=== PATIENT | female | born 1995 | race Two or more races ===

== ENCOUNTER 2024-09-01 00:29 | Emergency (ER) | payer MEDICAID, SELFPAY ==
[2024-09-01 00:31] VITALS: BMI 25.0
[2024-09-01 00:45] VITALS: BP 102/70; PULSE 92; RESP 18; TEMP 36.9; O2SAT 99
[2024-09-01] MEDS: METOCLOPRAMIDE INJ 5 MG/ML VIAL 2 ML 10 MG IM (01:14)
[2024-09-01] MEDS: DiphenhydrAMINE INJ 50 MG/ML VIAL 25 MG IM (01:14)
--- NOTE | 2024-09-01 02:58 | PD.EDRME ---
Rapid Medical Screening Exam RME Arrival date/time: 09/01/24 00:29 29F with no significant PMH presents to ED with N/V after 1st Ozempic dose. Chief Complaint: Nausea/Vomiting/Diarrhea Time Seen by Provider: 09/01/24 00:54 Vital signs: Vital Signs Temperature 98.5 F 09/01/24 00:45 Pulse Rate 92 09/01/24 00:45 Respiratory Rate 18 09/01/24 00:45 Blood Pressure 102/70 09/01/24 00:45 Pulse Oximetry (%) 99 09/01/24 00:45 Oxygen Delivery Method Room Air 09/01/24 00:45
== END 2024-09-01 02:55 | disposition left against medical advice (07) ==
PROVIDERS: Emergency Provider Emergency Medicine
DX: R11.2 Nausea with vomiting, unspecified (principal); T38.3X5A Adverse effect of insulin and oral hypoglycemic [antidiabetic] drugs, initial encounter
CPT/HCPCS: 99281; J1200; J2765

== ENCOUNTER 2024-09-02 07:31 | Emergency (ER) | payer MEDICAID, SELFPAY ==
[2024-09-02 07:56] VITALS: BP 124/79; PULSE 90; RESP 19; TEMP 36.8; O2SAT 98; BMI 25.9
--- NOTE | 2024-09-02 08:03 | PD.EDRME ---
Rapid Medical Screening Exam RME Arrival date/time: 09/02/24 07:31 This is a 29-year-old female who presents to the emergency department with complaints of nausea and vomiting, + flank pain for the last 3 days. Reports history of pyelo-, kidney stones. However she does state her nausea might be to her first dose of Ozempic. I have greeted and performed a focused initial assessment of this patient. Initial appropriate labs ordered at this time. A comprehensive ED assessment and evaluation of the patient and analysis of all test and completion of medical decision making process will be conducted by additional ED provider. Chief Complaint: Urogenital-Female Time Seen by Provider: 09/02/24 07:46 Vital signs: Vital Signs Temperature 98.2 F 09/02/24 07:56 Pulse Rate 90 09/02/24 07:56 Respiratory Rate 19 09/02/24 07:56 Blood Pressure 124/79 09/02/24 07:56 Pulse Oximetry (%) 98 09/02/24 07:56 Oxygen Delivery Method Room Air 09/02/24 07:56
[2024-09-02] MEDS: ONDANSETRON ODT 4 MG TABRAP 8 MG PO (08:09)
--- NOTE | 2024-09-02 08:39 | XR_ITS ---
Examination: CT abdomen and pelvis without contrast. Coronal 3-D reconstructions. Sagittal 2-D reconstructions. Date and time of exam:September 02, 2024 1059 hrs. Indications: Vomiting bilateral flank pain beginning 3 days ago CTDI: vol (mGy): 8.35 DLP: (mGycm): 438 Technique: Axial images of the abdomen have been obtained, 3 mm slice thickness Intravenous contrast material has not been administered. Low dose protocols were performed. One or more of the following dose reduction techniques were used; automated exposure control, adjustment of the mA and/or KV according to patient size, use of iterative reconstruction technique. Findings: No focal liver or splenic lesions No gallstones No pancreatic mass Multiple bilateral 1 to 3 mm renal calculi, no hydronephrosis or ureteral calculi Aorta normal size Normal appendix No bowel obstruction Intrauterine device satisfactory position No bladder mass or bladder calculi Impression: Multiple bilateral 1 to 3 mm renal calculi, no hydronephrosis or ureteral calculi
[2024-09-02 08:52] LABS: Collection Type, Urine Clean Catch
[2024-09-02 09:02] LABS: Basophils % (Auto) 0 % (0-2.5); Eosinophils % (Auto) 0 % (0-10); Hematocrit 39.5 % (36.0-46.0); Hemoglobin 14.2 g/dL (12.0-16.0); Immature Granulocytes % (Auto) 0 % (0-0); Immature Granulocytes Auto 0.04 Thou/mm3 (0.00-0.00); Lymphocytes % (Auto) 8 % (10-50); Mean Corpuscular HGB Conc 35.9 g/dl (31.0-37.0); Mean Corpuscular Hemoglobin 34.3 pg (25.0-35.0); Mean Corpuscular Volume 95 fL (80-100); Monocytes # (Auto) 0.9 Thou/mm3 (0.0-0.8); Monocytes % (Auto) 7 % (0-12); Neutrophils # (Auto) 11.2 Thou/mm3 (1.8-7.7); Neutrophils % (Auto) 85 % (37-80); Nucleated Red Blood Cell % 0 /100 WBC (0); Platelet Count 320 Thou/mm3 (140-440); RDW Standard Deviation 38.3 fL (36.4-46.3); Red Blood Count 4.14 Miln/mm3 (4.00-5.20); White Blood Count 13.1 Thou/mm3 (3.6-11.0)
[2024-09-02 09:17] LABS: HCG Qualitative,Urine Negative
[2024-09-02 09:23] LABS: Albumin, Serum 5.3 gm/dL (3.5-5.0); Albumin/Globulin Ratio 1.7 (1.2-2.2); Alkaline Phosphatase 76 U/L (46-116); Anion Gap 10 (7-16); Aspartate Amino Transferase 15 U/L (0-34); BUN/Creatinine Ratio 21 Ratio (12-20); Bilirubin,Total 1.8 mg/dL (0.3-1.2); Blood Urea Nitrogen 17 mg/dL (9-23); Calcium 11.7 mg/dL (8.3-10.6); Calcium (Corrected) 11.7 mg/dL (8.5-10.1); Carbon Dioxide 23.9 mMol/L (20.0-31.0); Chloride 107 mMol/L (98-107); Creatinine (Component) 0.8 mg/dL (0.6-1.3); Estimated Creatinine Clearance 101.5 mL/min (>60); Globulin 3.1 gm/dL (2.3-3.5); Glucose 116 mg/dL (74-106); Lipase 33 U/L (12-53); Osmolality,Calculated 283 (275-295); Potassium 3.7 mMol/L (3.4-5.1); Sodium 141 mMol/L (136-145); Total Protein 8.4 gm/dL (5.7-8.2); eGFR > 60 See Note
[2024-09-02 09:28] LABS: Alanine Aminotransferase 11 U/L (10-49)
[2024-09-02 09:32] LABS: Bacteria,Urine 4+; Bilirubin,Urine Negative (Negative); Blood,Urine 1+ (Negative); Clarity,Urine Turbid (Clear/Hazy); Color,Urine Yellow (Lt Yel-Yel); Glucose, Urine Negative (Negative); Ketones,Urine 4+ (Negative); Leukocyte Esterase,Urine Positive (Negative); Nitrite,Urine Negative (Negative); Protein,Urine 1+ (Neg - Trace); RBC,Urine 1 /hpf (0-3); Specific Gravity,Urine 1.035 (1.001-1.035); Squamous Epithelial Cell,Urine 5 /hpf (0-5); Urobilinogen,Urine Negative mg/dL (0.0-1.0); WBC,Urine 7 /hpf (0-5)
[2024-09-02 12:20] VITALS: BP 118/73; PULSE 102; RESP 18; O2SAT 100
--- NOTE | 2024-09-02 12:22 | PD.EDADULT ---
ED General RME/HPI General Chief complaint: Urogenital-Female Stated complaint: left kidney pain, n/v, feels dehydrated Time Seen by Provider: 09/02/24 07:46 Arrival date/time: 09/02/24 07:31 CC: Left CVA flank pain for the last 3 days with nausea and vomiting. Onset 3 days ago nausea is persistent last vomiting was earlier this morning approximately 5+ hours ago. Patient is awake alert oriented denies any chest pain shortness of breath difficulty breathing painful urination or bloody urination. RME / HPI RME / HPI narrative: 09/02/24 07:31 This is a 29-year-old female who presents to the emergency department with complaints of nausea and vomiting, + flank pain for the last 3 days. Reports history of pyelo-, kidney stones. However she does state her nausea might be to her first dose of Ozempic. I have greeted and performed a focused initial assessment of this patient. Initial appropriate labs ordered at this time. A comprehensive ED assessment and evaluation of the patient and analysis of all test and completion of medical decision making process will be conducted by additional ED provider. Related Data Previous Rx's ?Medication ?Instructions ?Recorded ibuprofen 600 mg tablet 600 mg PO Q8HR #30 tabs 01/23/21 levofloxacin 500 mg tablet 500 mg PO QDAY #10 tabs 01/23/21 tramadol 50 mg tablet 50 mg PO Q6HR PRN severe pain #7 01/23/21 tabs cefuroxime axetil 500 mg tablet 500 mg PO BID #14 tabs 06/15/23 ibuprofen 800 mg tablet 800 mg PO TID PRN pain #30 tabs 06/15/23 ciprofloxacin HCl 500 mg tablet 500 mg PO BID #14 tabs 09/02/24 (Cipro) ondansetron 4 mg disintegrating 4 mg PO Q8H #10 tabs 09/02/24 tablet Allergies Allergy/AdvReac Type Severity Reaction Status Date / Time No Known Allergies Allergy Verified 09/01/24 00:33 Review of Systems Review of Systems Narrative Review of Systems: GEN: No fever, no chills, no weight loss EYES: No discharge, no visual changes, no pain HEENT: No ear pain, no congestion, no sore throat PULM: No shortness of breath, no cough, no congestion CV: No chest pain, no dyspnea on exertion, no palpitations GI: No nausea, no vomiting, no diarrhea, no pain, no constipation : No frequency, no urgency, no dysuria MUSC/SKEL: No joint pain, + back pain SKIN: No rash PSYCH: No hallucinations, no depression HEME/LYMPH: No easy bleeding or bruising tendencies NEURO: No weakness, no headache Past Medical History Past Medical History CARDIAC: Negative Congestive Heart Failure RESPIRATORY: Negative Chronic Obstructive Pulmonary Disease (COPD) GENITOURINARY: Positive Kidney Stones; Negative Renal Disease ENDOCRINE: Negative Diabetes Mellitus Type 1 or Diabetes Mellitus Type 2 OTHER HISTORY: Negative Blood Transfusions Social History SMOKING STATUS: Never smoker SUBSTANCE USE: does not use ED Exam Narrative Physical exam: [General: Not in any acute distress Head normocephalic HEENT: Within acceptable limits Neck is supple nontender Chest equal chest rise nontender to palpation Respiratory: Clear to auscultation no wheezes crackles or rubs CV: Rate rhythm is regular no murmurs rubs or clicks Abdomen is soft nontender no masses positive bowel sounds all 4 quadrants Back: Left CVA tenderness no right CVA tenderness, no spinous process tenderness from cervical spine thoracic and lumbar spine Skin: Intact no petechiae rash induration ulceration or crepitus Extremities: Moving all extremity against resistance cap refill less than 2 seconds neurosensory intact Neuro: Awake alert oriented x3 Glascow coma 15 no focal deficits] Course Quality Measures none Orders Category Date Time Status CT abdomen pelvis wo con Stat Exams 09/02/24 08:39 Completed CBC Stat Lab 09/02/24 08:38 Completed Comprehensive Metabolic Panel Stat Lab 09/02/24 08:38 Completed HCG Qualitative,Urine Stat Lab 09/02/24 08:15 Completed Lipase Stat Lab 09/02/24 08:38 Completed Urinalysis Stat Lab 09/02/24 08:15 Completed Ondansetron Odt [Zofran Odt] Med 09/02/24 08:02 Discontinued 8 mg PO X1 ONE Vital Signs Vital signs: Vital Signs Temperature 98.2 F 09/02/24 07:56 Pulse Rate 90 09/02/24 07:56 Respiratory Rate 19 09/02/24 07:56 Blood Pressure 124/79 09/02/24 07:56 Pulse Oximetry (%) 98 09/02/24 07:56 Oxygen Delivery Method Room Air 09/02/24 07:56 MDM Patient data External records reviewed:: [facility] previous records Clinical information provided by:: patient Social determinants that could affect healthcare access:: none Patient has the following chronic illnesses:: None How is presenting disease/condition affected by chronic disease/condition?: uneffected by Evaluation data The following diagnostics were reviewed and interpreted by me:: lab results and radiology exam(s) Lab and/or radiology exams considered but not ordered:: CBC shows no acute leukocytosis anemia thrombocytopenia CMP shows no acute electrolyte imbalances renal impairment transaminitis or T. bili elevation CT shows the patient has renal pelvis stones with no hydroureter ureter hydronephrosis. Urine shows 4+ bacteria leukocyte Estrace and WBCs Interpretation Summary: Suspect urinary tract infection review of the culture and sensitivity of urine from 2020 shows that it is E. coli sensitive to pretty much everything. Medications Medications considered but not ordered:: None Medication administrations:: Medication Administration History Discontinued Medications Ondansetron HCl (Ondansetron Odt 4 Mg Tabrap) 8 mg PO X1 ONE; Protocol Stop: 09/02/24 08:03 Last Admin: 09/02/24 08:09 Dose: 8 mg Documented By: LENA None Consultations Consultation(s) initiated? (list below): No Diagnosis Differential Diagnosis ED Complaint MDM: UTI pyelonephritis urolithiasis Most likely diagnosis given after review of the tests above:: UTI nausea Admission Indicated Admission indicated?: not indicated Explain why admission is indicated or not indicated:: Stable for outpatient follow-up Admission Request Was there a request for admission?: No Disposition Plan Disposition Plan: Discharge Discharge Attestation Discharge Attestation: The patient and all family members were given an opportunity to ask questions and understood the discharge instructions. Discharge instructions specifically effects, indications for sooner follow up or return to the emergency department, and the expected course of current diagnosis. Patient condition: Stable Medical Decision Making Differential Diagnosis Differential Diagnosis: UTI pyelonephritis urolithiasis Lab Data 09/02/24 08:38 09/02/24 08:38 Labs: Lab Results 09/02/24 09/02/24 Range/Units 08:15 08:38 WBC 13.1 H (3.6-11.0) Thou/mm3 RBC 4.14 (4.00-5.20) Miln/mm3 Hgb 14.2 (12.0-16.0) g/dL Hct 39.5 (36.0-46.0) % MCV 95 (80-100) fL MCH 34.3 (25.0-35.0) pg MCHC 35.9 (31.0-37.0) g/dl RDW Std Deviation 38.3 (36.4-46.3) fL Plt Count 320 (140-440) Thou/mm3 Neut % (Auto) 85 H (37-80) % Lymph % (Auto) 8 L (10-50) % [place] % (Auto) 7 (0-12) % Eos % (Auto) 0 (0-10) % Baso % (Auto) 0 (0-2.5) % Neut # (Auto) 11.2 H (1.8-7.7) Thou/mm3 Lymph # (Auto) 1.0 (1.0-4.8) Thou/mm3 [place] # (Auto) 0.9 H (0.0-0.8) Thou/mm3 Eos # (Auto) 0.0 (0.0-0.5) Thou/mm3 Baso # (Auto) 0.0 (0.0-0.2) Thou/mm3 Immature Gran # (Auto) 0.04 H (0.00-0.00) Thou/mm3 Absolute Nucleated RBC 0.00 (0.00-0.00) Thou/mm3 Immature Gran % 0 (0-0) % Nucleated RBC % 0 (0) /100 WBC Sodium 141 (136-145) mMol/L Potassium 3.7 (3.4-5.1) mMol/L Chloride 107 (98-107) mMol/L Carbon Dioxide 23.9 (20.0-31.0) mMol/L Anion Gap 10 (7-16) BUN 17 (9-23) mg/dL Creatinine 0.8 (0.6-1.3) mg/dL Estim Creat Clear Calc 101.5 (>60) mL/min eGFR > 60 (60 - ) See Note BUN/Creatinine Ratio 21 H (12-20) Ratio Glucose 116 H (74-106) mg/dL Calculated Osmolality 283 (275-295) Calcium 11.7 H (8.3-10.6) mg/dL Corrected Calcium 11.7 H (8.5-10.1) mg/dL Total Bilirubin 1.8 H (0.3-1.2) mg/dL AST 15 (0-34) U/L ALT 11 (10-49) U/L Alkaline Phosphatase 76 (46-116) U/L Total Protein 8.4 H (5.7-8.2) gm/dL Albumin 5.3 H (3.5-5.0) gm/dL Globulin 3.1 (2.3-3.5) gm/dL Albumin/Globulin Ratio 1.7 (1.2-2.2) Lipase 33 (12-53) U/L Ur Collection Type Clean Catch Urine Color Yellow (Lt Yel-Yel) Urine Clarity Turbid A (Clear/Hazy) Urine pH 6.0 (5.0-7.0) Ur Specific [place] 1.035 (1.001-1.035) Urine Protein 1+ A (Neg - Trace) Urine Glucose (UA) Negative (Negative) Urine Ketones 4+ A (Negative) Urine Blood 1+ A (Negative) Urine Nitrite Negative (Negative) Urine Bilirubin Negative (Negative) Urine Urobilinogen (Auto) Negative (0.0-1.0) mg/dL Ur Leukocyte Esterase Positive (Negative) Urine RBC 1 (0-3) /hpf Urine WBC 7 H (0-5) /hpf Ur Squamous Epith Cells 5 (0-5) /hpf Urine Bacteria 4+ A (None) Urine HCG, Qual Negative Discharge Plan Plan Patient Disposition: HOME (Self Care) Patient condition on transfer: Stable Prescriptions/Referrals Prescriptions/Med Rec: New ciprofloxacin HCl [Cipro] 500 mg tablet 500 mg PO BID Qty: 14 0RF ondansetron 4 mg tablet,disintegrating 4 mg PO Q8H Qty: 10 0RF No Action tramadol 50 mg Tablet 50 mg PO Q6HR PRN (Reason: severe pain) Qty: 7 0RF ibuprofen 600 mg Tablet 600 mg PO Q8HR Qty: 30 0RF levofloxacin 500 mg tablet 500 mg PO QDAY Qty: 10 0RF cefuroxime axetil 500 mg tablet 500 mg PO BID Qty: 14 0RF ibuprofen 800 mg tablet 800 mg PO TID PRN (Reason: pain) Qty: 30 0RF Referrals: Faustino Martinez MD [Physician] - In 1 week No Primary/Family,Physician [Primary Care Provider] - In 1 week Problem List Clinical Impression: Urinary tract infection, Nausea Patient/Caregiver Discharge Instructions Other Activity Instructions:: Rest drink plenty of fluids follow-up with your primary care provider if there is worsening of symptoms spite of medication return the emergency room medially for further evaluation. Education Materials: Urinary Tract Infections in Women Print Language: Lithuanian Stand Alone Forms: Renetta Award Info., Work/School Release, Patient Portal Info Letter MD Attestation Attestation The patient was seen by the midlevel practitioner. I, the co-signing physician, was present during the entire ER visit. While I did not physically examine the patient, I was available for consultation as needed.
== END 2024-09-02 13:04 | disposition home or self-care (01) ==
PROVIDERS: Nurse Practitioner Primary Care; Emergency Provider Emergency Medicine
DX: N39.0 Urinary tract infection, site not specified (principal); N20.0 Calculus of kidney
CPT/HCPCS: 36415; 74176; 80053; 81001; 81025; 83690; 85025; 99284; Q0162

== ENCOUNTER 2025-05-15 05:40 | Day surgery (SDC) | payer MEDICAID, SELFPAY ==
[2025-05-14 07:44] VITALS: BMI 28.6
[2025-05-14 08:20] LABS: Basophils # (Auto) 0.0 Thou/mm3 (0.0-0.2); Basophils % (Auto) 0 % (0-2.5); Eosinophils # (Auto) 0.1 Thou/mm3 (0.0-0.5); Eosinophils % (Auto) 2 % (0-10); Hematocrit 38.7 % (36.0-46.0); Hemoglobin 13.3 g/dL (12.0-16.0); Immature Granulocytes Auto 0.01 Thou/mm3 (0.00-0.00); Lymphocytes # (Auto) 2.4 Thou/mm3 (1.0-4.8); Lymphocytes % (Auto) 36 % (10-50); Mean Corpuscular HGB Conc 34.4 g/dl (31.0-37.0); Mean Corpuscular Hemoglobin 34.5 pg (25.0-35.0); Mean Corpuscular Volume 100 fL (80-100); Monocytes # (Auto) 0.5 Thou/mm3 (0.0-0.8); Monocytes % (Auto) 8 % (0-12); Neutrophils # (Auto) 3.6 Thou/mm3 (1.8-7.7); Neutrophils % (Auto) 54 % (37-80); Nucleated Red Blood Cell # 0.00 Thou/mm3 (0.00-0.00); Nucleated Red Blood Cell % 0 /100 WBC (0); Platelet Count 267 Thou/mm3 (140-440); RDW Standard Deviation 41.1 fL (36.4-46.3); Red Blood Count 3.86 Miln/mm3 (4.00-5.20); White Blood Count 6.7 Thou/mm3 (3.6-11.0)
[2025-05-14 08:32] LABS: Beta HCG,Quantitative < 1 mIU/mL (<5.0)
[2025-05-14 09:14] LABS: Hepatitis A Antibody IgM Non Reactive (Non React); Hepatitis B Core Antibody IgM Non Reactive (Non React); Hepatitis B Surface Antigen Non Reactive (Non React); Hepatitis C Antibody Non Reactive (Non React)
--- NOTE | 2025-05-14 09:53 | PD.GYNHP ---
Documentation for date of: 05/14/25 [employer] SUPPORT CONTROL OFFICER - HPI History of Present Illness History of present illness: Ms. GREGORY is a 30 year old female admitted for cervical conization . Pt denied any vaginal concerns . Pt understands that its an excisional procedure for sever dysplastic cell of cervix removal. 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 OFFICER Constitutional Constitutional: no acute distress Routine HEENT Exam Head: Present normocephalic and atraumatic Eye: Present EOMI and PERRL ENT: Present mucous membranes moist Routine Neck Exam Neck: Present supple and trachea midline Routine Respiratory Exam Respiratory: Present chest non-tender, lungs clear, normal breath sounds and no resp distress Routine Cardiovascular Exam Cardiovascular: Present RRR Routine Abdominal Exam Abdominal: Present soft and normoactive bowel sounds Routine Extremities Exam Extremities: Present full ROM Routine Skin Exam Skin: Present intact and dry Routine Neurological Exam Neurological: Present alert, oriented X3 and CN II-XII intact Routine Psychiatric Exam Psychiatric: Present normal affect and normal thought process [employer]OL OFFICER - Results Labs 05/14/25 08:04 Labs: Short CBC 05/14/25 Range/Units 08:04 WBC 6.7 (3.6-11.0) Thou/mm3 Hgb 13.3 (12.0-16.0) g/dL Hct 38.7 (36.0-46.0) % Plt Count 267 (140-440) Thou/mm3 Impressions Impression: 30 y/o P1 admitted for cervical conization pap HSIL Colposcopy ALONSO 3, ECC CIN3 Patient was made aware that cold knife conization is removal of conical shape of cervix typically including the dysplastic cells, however chances of margin positivity exist , can only be confirmed after pathology examination. Alternative of hysterectomy discussedRisk of surgery includes bleeding , infectionIts an outpatnet surgery and anticipated discharge same day? Assessment and Plan Additional Assessment & Plan Additional Plan: cervical conization under general anasthesia Quality Measures Quality Measures VTE prophylaxis
[2025-05-14 13:32] LABS: HIV (1&2) Antibody Rapid Non-Reactive
[2025-05-15] VITALS (10 sets, daily range): BP systolic 105–129; BP diastolic 63–81; PULSE 60–78; RESP 12–20; TEMP 36.2–36.3; O2SAT 94–99; BMI 28.3
--- NOTE | 2025-05-15 07:20 | CHAP ---
Visitad with patient and gave encouragement and prayer about her procedure.
--- NOTE | 2025-05-15 08:48 | SUR.PHASEI ---
pt received from OR in recovery bay 1. pt awake and alert, breathing unlabored on oxymask 8l, v/s stable. pt dressing peripad scant blood noted. report received room Alva CLEARY and Елена STATON.
[2025-05-15] MEDS: fentaNYL CIT INJ 50 mCg/ML AMP 2ML IVP ×2 (08:56→09:21)
--- NOTE | 2025-05-15 09:08 | SUR.PHASEI ---
pt able to tolerate oral fluids without difficulty swallowing or nausea/vomiting.
[2025-05-15] MEDS: ONDANSETRON INJ 2 MG/ML INJ 2 ML 4 MG IVP (09:13)
[2025-05-15] MEDS: PROMETHAZINE INJ 12.5 MG in SODIUM CHLORIDE 0.9% 50 ML 2.5 MG IV (09:48)
[2025-05-15] MEDS: KETOROLAC INJ 30 MG/ML VIAL IVP (09:57)
--- NOTE | 2025-05-15 10:04 | ESOP_ITS ---
Operative Note - CORNER CUTTER Procedure Date of procedure: 05/15/25 Procedure Performed: Exam under anesthesia and cervical conization Indication: ALONSO-3 Pre-Op diagnosis: Same Post-Op diagnosis: Same Anesthesia type: General Procedure description: The patient was taken back to the operating room and prepped and draped in a sterile fashion. General anesthesia was deemed to be adequate. A time-out was performed to confirm correct patient and correct procedure. The patient was then positioned on the operating room in the dorsolithotomy position. A bimanual examination was performed and the uterus was noted to be small, anteverted in size yet mobile. The cervix was visualized with the aid of a An. Dilute vasopressin was injected circumferentially around the cervix to aid in hemostasis. Utilizing 0 Vicryl we suture ligated the cervix at 3 and 9 o'clock positions to aid in decreased bleeding to ligate the cervical branch of the uterine arteries. Once the cervix was visualized to be pale, with a scalpel were able to circumferentially remove a cone specimen of the cervix, again prior to excising that cone, we placed a Hegar dilator to protect our margins. Once the cone specimen was removed. Minimal amount of bleeding was noted. We controlled that with ball electrocautery and munsol solution. We then deemed the procedure complete. Hemostasis was obtained. We removed the speculum as well as the An. Sponge, lap and instrument counts were correct x2. The patient was transferred to the recovery room in stable condition Estimated blood loss (ml): 5 Surgical staff Operation Date: 05/15/25 07:45 Case Staff FOOD SERVICE TEAM MEMBER: Елена Bender Diagnosis Problem List Completed Was Problem List Reviewed/Reconciled?: Yes
--- NOTE | 2025-05-15 10:28 | SUR.PHASEII ---
pt awake and alert, breathing unlabored on room air. v/s stable. pt dressing peripad cdi. pt able to ambulate to wheelchair with steady gait. d/c instructions given with sister Angela in room, all questions answered. pt d/c via wheelchair with all belongings.
== END 2025-05-15 10:28 | disposition home or self-care (01) ==
PROVIDERS: PCP Family Medicine; Referring Provider Student in an Organized Health Care Education/Training Program; Visit Provider Student in an Organized Health Care Education/Training Program
PROC: 0UBC7ZZ Excision of Cervix, Via Natural or Artificial Opening (ICD-10-PCS; CPT 57520; principal; 2025-05-15 07:30)
DX: R87.613 High grade squamous intraepithelial lesion on cytologic smear of cervix (HGSIL) (principal); Z90.710 Acquired absence of both cervix and uterus
CPT/HCPCS: 57520; 36415; 80074; 84702; 85025; 86703; 86850; 86900; 86901; A4217; A4649; J0131; J0690; J1100; J1885; J2405; J2550; J2598; J2704; J3010; J3490; A9270

== ENCOUNTER 2025-06-08 16:06 | Emergency (ER) | payer MEDICAID, SELFPAY ==
[2025-06-08 16:08] VITALS: BMI 26.6
[2025-06-08 16:26] VITALS: BP 112/70; PULSE 104; RESP 18; TEMP 39.4; O2SAT 99
--- NOTE | 2025-06-08 16:46 | XR_ITS ---
Examination: Pelvic ultrasound, transabdominal, complete Technique: Transabdominal ultrasound of the pelvis performed using grayscale imaging Date and time of exam: June 08, 2025, 1712 hours INDICATIONS: Pelvic pain with vaginal bleeding post cervical biopsy 3 weeks ago FINDINGS: Uterus 6.5 cm endometrial stripe 1.1 cm No hemorrhage in the endometrium. Right ovary 3.0 cm arterial flow small follicles The left ovary 3.8 cm arterial flow small follicles IMPRESSION: Uterus 6.5 cm endometrial side 1.1 cm, no endometrial hemorrhage
--- NOTE | 2025-06-08 16:47 | EDRME_ITS ---
Rapid Medical Screening Exam RME Arrival date/time: 06/08/25 16:06 Chief Complaint: Vaginal Bleeding Time Seen by Provider: 06/08/25 16:18 Vital signs: Vital Signs Temperature 103.0 F H 06/08/25 16:26 Pulse Rate 104 H 06/08/25 16:26 Respiratory Rate 18 06/08/25 16:26 Blood Pressure 112/70 06/08/25 16:26 Pulse Oximetry (%) 99 06/08/25 16:26 Oxygen Delivery Method Room Air 06/08/25 16:26 Vital signs reviewed by provider: Yes RME Narrative: Patient is a 30-year-old female with medical history notable for recent cone biopsy approximately 3 weeks ago that is in the emergency department with concerns for pelvic pain, back pain fevers and chills for the last couple days. Patient states that after her cone biopsy she had significant vaginal bleeding and pain symptoms seem to have improved briefly and then the vaginal bleeding and the pain started. She started having chills over the last couple days. Tried to get into an appointment with her technology intern however 5 minutes prior to her appointment with a technology intern yesterday her appointment was canceled. Patient has had persistent symptoms and is still coming to the emergency de partment. Patient does not take any medications allergies to medications. No cough, runny nose, melena or bloody stools
--- NOTE | 2025-06-08 17:05 | PC.NURSE ---
pt with c/o vaginal spotting X 3 weeks after having a cone biopsy. Now with c/o cramping, dizziness, chills, and fever since last night
[2025-06-08 17:11] LABS: Lactate (Lactic Acid) 0.7 mMol/L (0.4-2.0)
[2025-06-08 17:12] LABS: Collection Type, Urine Clean Catch
[2025-06-08 17:24] LABS: Basophils # (Auto) 0.0 Thou/mm3 (0.0-0.2); Basophils % (Auto) 0 % (0-2.5); Eosinophils # (Auto) 0.0 Thou/mm3 (0.0-0.5); Eosinophils % (Auto) 0 % (0-10); Hematocrit 37.7 % (36.0-46.0); Hemoglobin 12.8 g/dL (12.0-16.0); Immature Granulocytes Auto 0.04 Thou/mm3 (0.00-0.00); Lymphocytes # (Auto) 1.5 Thou/mm3 (1.0-4.8); Lymphocytes % (Auto) 13 % (10-50); Mean Corpuscular HGB Conc 34.0 g/dl (31.0-37.0); Mean Corpuscular Hemoglobin 34.2 pg (25.0-35.0); Mean Corpuscular Volume 101 fL (80-100); Monocytes # (Auto) 1.3 Thou/mm3 (0.0-0.8); Monocytes % (Auto) 10 % (0-12); Neutrophils # (Auto) 9.2 Thou/mm3 (1.8-7.7); Neutrophils % (Auto) 76 % (37-80); Nucleated Red Blood Cell # 0.00 Thou/mm3 (0.00-0.00); Nucleated Red Blood Cell % 0 /100 WBC (0); Platelet Count 262 Thou/mm3 (140-440); RDW Standard Deviation 40.0 fL (36.4-46.3); Red Blood Count 3.74 Miln/mm3 (4.00-5.20); White Blood Count 12.0 Thou/mm3 (3.6-11.0)
--- NOTE | 2025-06-08 17:24 | EKG_ITS ---
[facility] Test Date: 2025-06-08 Pat Name: CHEO GREGORY Department: Room: - Gender: Female [employer] Worker: : 1995 Requested By: Fabio Lee Order Number: [id number] Reading MD: Fabio Lee Measurements Intervals [place] Rate: 83 P: 19 SC: 129 QRS: 8 QRSD: 97 T: 23 QT: 345 QTc: 408 Interpretive Statements SINUS RHYTHM No previous ECG available for comparison /store/S0/[id number]/[id number].pdf
--- NOTE | 2025-06-08 17:24 | XR_ITS ---
Examination: AP chest single view TECHNIQUE: AP portable upright chest single view Date and time: June 08, 2025, 1746 hours, comparison October 06, 2013. INDICATIONS: Sepsis alert today FINDINGS: Normal heart size. No lobar pneumonia or pulmonary edema. Mild osteopenia. IMPRESSION: No pneumonia or pulmonary edema.
[2025-06-08 17:31] LABS: INR 1.3 (0.9-1.3); Partial Thromboplastin Time 28.1 Seconds (22.0-36.0); Prothrombin Time 13.5 Seconds (9.0-12.2)
[2025-06-08] MEDS: KETOROLAC INJ 60 MG/2 ML VIAL 15 MG IM (17:33)
[2025-06-08] MEDS: ACETAMINOPHEN 325 MG TABLET 650 MG PO (17:34)
[2025-06-08] MEDS: cefTRIAXone/D5w 1gm IV premix 1 GM/50 ML BAG IV (17:35)
[2025-06-08] MEDS: RINGERS LACTATED 1000 ML 1,000 ML 999 ML IV ×2 (17:38)
[2025-06-08 17:40] VITALS: PULSE 93
[2025-06-08 17:40] LABS: Bacteria,Urine 4+; Bilirubin,Urine Negative (Negative); Blood,Urine Trace (Negative); Clarity,Urine Turbid (Clear/Hazy); Color,Urine Lt-Yellow (Lt Yel-Yel); Glucose, Urine Negative (Negative); Ketones,Urine 1+ (Negative); Leukocyte Esterase,Urine Positive (Negative); Nitrite,Urine Positive (Negative); PH,Urine 7.0 (5.0-7.0); Protein,Urine Negative (Neg - Trace); RBC,Urine 11 /hpf (0-3); Specific Gravity,Urine 1.016 (1.001-1.035); Squamous Epithelial Cell,Urine 1 /hpf (0-5); Urobilinogen,Urine Negative mg/dL (0.0-1.0); WBC,Urine 19 /hpf (0-5)
[2025-06-08 17:41] VITALS: BP 127/74; PULSE 93; RESP 19; O2SAT 95
[2025-06-08 17:42] LABS: Alanine Aminotransferase 10 U/L (10-49); Albumin, Serum 4.5 gm/dL (3.5-5.0); Albumin/Globulin Ratio 1.8 (1.2-2.2); Alkaline Phosphatase 75 U/L (46-116); Anion Gap 11 (7-16); Aspartate Amino Transferase 19 U/L (0-34); BUN/Creatinine Ratio 7 Ratio (12-20); Bilirubin,Total 1.4 mg/dL (0.3-1.2); Blood Urea Nitrogen 5 mg/dL (9-23); Calcium 10.6 mg/dL (8.3-10.6); Calcium (Corrected) 10.6 mg/dL (8.5-10.1); Carbon Dioxide 23.3 mMol/L (20.0-31.0); Chloride 106 mMol/L (98-107); Creatinine (Component) 0.7 mg/dL (0.6-1.3); Estimated Creatinine Clearance 120.4 mL/min (>60); Globulin 2.5 gm/dL (2.3-3.5); Glucose 94 mg/dL (74-106); Osmolality,Calculated 276 (275-295); Potassium 3.5 mMol/L (3.4-5.1); Procalcitonin 0.06 ng/ml (0.0-0.49); Sodium 140 mMol/L (136-145); Total Protein 7.0 gm/dL (5.7-8.2); eGFR > 60 See Note
[2025-06-08] MEDS: ONDANSETRON INJ 2 MG/ML INJ 2 ML 4 MG IVP (18:00)
[2025-06-08 18:02] VITALS: BP 117/73; PULSE 90; RESP 19; TEMP 37.8; O2SAT 97
--- NOTE | 2025-06-08 18:06 | PC.NURSE ---
FLAGYL GIVEN PO ORDERED BEFORE MD CHANGED TO IV
[2025-06-08 18:51] LABS: Troponin I < 0.002 ng/mL (0.0-0.045)
--- NOTE | 2025-06-08 18:51 | EDNOTE_ITS ---
ED Fever RME/HPI General Chief Complaint: Vaginal Bleeding Stated Complaint: FEVER, LOWER BACK PAIN, VAGINAL BLEEDING Time Seen by Provider: 06/08/25 16:18 Arrival date/time: 06/08/25 16:06 RME / HPI RME / HPI Narrative: Patient is a 30-year-old female with medical history notable for recent cone biopsy approximately 3 weeks ago that is in the emergency department with concerns for pelvic pain, back pain fevers and chills for the last couple days. Patient states that after her cone biopsy she had significant vaginal bleeding and pain symptoms seem to have improved briefly and then the vaginal bleeding and the pain started. She started having chills over the last couple days. Tried to get into an appointment with her oiler and greaser however 5 minutes prior to her appointment with a oiler and greaser yesterday her appointment was canceled. Patient has had persistent symptoms and is still coming to the emergency department. Patient does not take any medications allergies to medications. No cough, runny nose, melena or bloody stools DR. LINARES MAIN ED EVALUATION: 30 y/o female presents to ED c/o fever, pelvic pain, and urinary urgency x 2-3 days. Patient underwent cone biopsy approximately 3 1/2weeks ago on May 15, but F/U appointment was abruptly cancelled. Denies dysuria or exudative discharge from the vagina. No other concerns or complaints expressed at this time. Related Data Previous Rx's ?Medication ?Instructions ?Recorded acetaminophen 300 mg-codeine 15 mg 1 tab PO Q12H PRN p ain #14 tabs 05/15/25 tablet metronidazole 500 mg tablet 500 mg PO Q8H #14 tabs tranexamic acid 650 mg tablet 650 mg PO Q12H #7 tabs 0 05/15/25 cephalexin 500 mg capsule 1,000 mg (2 x 500 mg) PO BID 5 06/08/25 days #20 caps Allergies Allergy/AdvReac Type Severity Reaction Status Date / Time No Known Allergies Allergy Verified 06/08/25 16:08 Review of Systems Review of Systems Systems Reviewed: All systems reviewed, normal except as documented Past Medical History Past Medical History GENITOURINARY: Positive Genitourinary Disorders and Kidney Stones REPRODUCTIVE: Positive Previous Pregnancies HEMATOLOGIC: Positive Anemia Family History FAMILY HISTORY: Positive Family Surgery Physical Exam Narrative Physical exam: Generally patient is alert and in no obvious distress heart regular rate and rhythm, lungs clear to auscultation equal bilaterally, abdomen soft bowel sounds present nondistended mild suprapubic abdominal tenderness without rebound, musculoskeletal exam no costovertebral angle tenderness, skin is warm pale and dry without rash, neurologic exam no focal motor or sensory deficits cranial nerves II through XII grossly intact Course Quality Measures none Orders Category Date Time Status Bedside Blood Glucose NOW Care 06/08/25 16:40 Active Bedside COVID-19 Antigen Test NOW Care 06/08/25 17:27 Active Bedside Influenza A&B Antigen Test NOW Care 06/08/25 17:[address] Screening NOW Care 06/08/25 16:[address] Engineering Technician now Care 06/08/25 17:24 Active Insert IV NOW Care 06/08/25 16:40 Active Strict Intake and Output Routine Care 06/08/25 16:[address] abdomen pelvis w con Stat Exams 06/08/25 16:46 Ordered US pelvic complete Stat Exams 06/08/25 16:46 Completed XR chest 1V SEPSIS PROTOCOL Stat Exams 06/08/25 17:24 Completed Blood Culture (Lab) Stat Lab 06/08/25 15:04 Received CBC Stat Lab 06/08/25 15:02 Completed Comprehensive Metabolic Panel Stat Lab 06/08/25 15:02 Completed HCG Qualitative,Urine Stat Lab 06/08/25 17:00 Received Lactate (Lactic Acid) Stat Lab 06/08/25 15:02 Completed Partial Thromboplastin Time Stat Lab 06/08/25 15:02 Completed Procalcitonin Stat Lab 06/08/25 15:02 Completed Prothrombin Time with INR Stat Lab 06/08/25 15:02 Completed Troponin I Stat Lab 06/08/25 17:51 Completed Urinalysis Stat Lab 06/08/25 17:04 Completed Urine Culture Stat Lab 06/08/25 17:04 Received Acetaminophen Tab [Tylenol Tab] Med 06/08/25 16:42 Discontinued 650 mg PO X1 ONE Ketorolac Inj [Toradol Inj] Med 06/08/25 16:46 Discontinued 15 mg IM X1 ONE Ondansetron Inj [Zofran Inj] Med 06/08/25 17:50 Discontinued 4 mg IVP X1 ONE Ringers Lactated 1000 ml [Lactated Ringers] 1,000 ml Med 06/08/25 16:41 Discontinued IV 999 mls/hr Ringers Lactated 1000 ml [Lactated Ringers] 1,000 ml Med 06/08/25 16:45 Discontinued IV 999 mls/hr cefTRIAXone/D5w 1gm IV premix [Rocephin/D5w 1gm IV Med 06/08/25 16:40 Discontinued premix] 1 gm in 50 ml IV X1 cefTRIAXone/D5w 1gm IV premix [Rocephin/D5w 1gm IV Med 06/08/25 16:47 Discontinued premix] 1 gm in 50 ml IV X1 metroNIDAZOLE [Flagyl] Med 06/08/25 16:45 Discontinued 500 mg PO X1 ONE metroNIDAZOLE/NS 500 MG IVPB [Flagyl 500 mg IV] Med 06/08/25 16:39 Discontinued 500 mg in 100 ml IV X1 EKG (RT) Stat RT 06/08/25 17:24 Draft Oxygen Delivery NOW RT 06/08/25 16:40 Active Vital Signs Vital signs: Vital Signs Temperature 103.0 F H 06/08/25 16:26 Pulse Rate 104 H 06/08/25 16:26 Respiratory Rate 18 06/08/25 16:26 Blood Pressure 112/70 06/08/25 16:26 Pulse Oximetry (%) 99 06/08/25 16:26 Oxygen Delivery Method Room Air 06/08/25 16:26 Fever MDM Narrative MDM Narrative:: I interpreted all labs. Patient had 2 SIRS criteria with a temperature 103 degrees and elevated heart rate. Septic workup was initiated. Blood cultures were obtained. Prior to my evaluation the patient received Rocephin 1 g IV and Flagyl 500 mg IV. Lactic acid levels not elevated. Procalcitonin levels not elevated. Urine is infected with positive nitrate, positive leukocyte esterase, 19 white blood cells and 4+ bacteria. Patient will be started on cephalexin to be taken as prescribed. I doubt that the patient has cervicitis from a cone biopsy done 3-1/2 weeks ago. She may follow-up with her COLLEGE AND CAREER COUNSELOR physician. Cephalexin as prescribed. She can take Tylenol and ibuprofen for fever and pain. Patient data External records reviewed:: [facility] previous records (Reviewed prior ED records from 09/02/24. Patient was seen for Nausea.) Clinical information provided by:: patient Social determinants that could affect healthcare access:: none Patient has the following chronic illnesses:: Anemia How is presenting disease/condition affected by chronic disease/condition?: exacerbated by Evaluation data The following diagnostics were reviewed and interpreted by me:: lab results, radiology exam(s) and EKG tracing(s) Lab and/or radiology exams considered but not ordered:: None Interpretation Summary: RADIOLOGY Pelvic US: FINDINGS: Uterus 6.5 cm endometrial stripe 1.1 cm No hemorrhage in the endometrium. Right ovary 3.0 cm arterial flow small follicles The left ovary 3.8 cm arterial flow small follicles IMPRESSION: Uterus 6.5 cm endometrial side 1.1 cm, no endometrial hemorrhage Chest X-Ray: FINDINGS: Normal heart size. No lobar pneumonia or pulmonary edema. Mild osteopenia. IMPRESSION: No pneumonia or pulmonary edema. Medications / Prescriptions Medications or Prescriptions considered but not ordered:: None Medication administrations:: Medication Administration History Discontinued Medications Acetaminophen (Acetaminophen 325 Mg Tablet) 650 mg PO X1 ONE Stop: 06/08/25 16:43 Last Admin: 06/08/25 17:34 Dose: 650 mg Documented By: [facility] Ceftriaxone Sodium/Dextrose (Rocephin/D5w 1gm Iv Premix) 1 gm in 50 mls @ 100 mls/hr IV X1 ONE Stop: 06/08/25 17:09 Last Admin: 06/08/25 18:05 Dose: Not Given Documented By: [facility] Non-Admin Reason: Duplicate Medication on eMAR Metronidazole (Flagyl 500 Mg Iv) 500 mg in 100 mls @ 200 mls/hr IV X1 ONE Stop: 06/08/25 17:08 Last Admin: 06/08/25 18:05 Dose: Not Given Documented By: [facility] Non-Admin Reason: Other, see note Lactated Ringer's (Lactated Ringers) 1,000 mls @ 999 mls/hr IV .Q1H1M ONE Stop: 06/08/25 17:41 Last Admin: 06/08/25 17:38 Dose: 999 mls/hr Documented By: [facility] Lactated Ringer's (Lactated Ringers) 1,000 mls @ 999 mls/hr IV .Q1H1M ONE Stop: 06/08/25 17:45 Last Admin: 06/08/25 17:38 Dose: 999 mls/hr Documented By: DAVID Ceftriaxone Sodium/Dextrose (Rocephin/D5w 1gm Iv Premix) 1 gm in 50 mls @ 100 mls/hr IV X1 STA Stop: 06/08/25 17:16 Last Infusion: 06/08/25 18:06 Dose: Infused Documented By: Admin: 06/08/25 17:35 Dose: 100 mls/hr Documented By: Bhargav Ketorolac Tromethamine (Ketorolac Inj 60 Mg/2 Ml Vial) 15 mg IM X1 ONE Stop: 06/08/25 16:47 Last Admin: 06/08/25 17:33 Dose: 15 mg Documented By: DAVID Metronidazole (Metronidazole 250 Mg Tablet) 500 mg PO X1 ONE Stop: 06/08/25 16:46 Last Admin: 06/08/25 18:01 Dose: 500 mg Documented By: DAVID Ondansetron HCl (Ondansetron Inj 2 Mg/Ml Inj 2 Ml) 4 mg IVP X1 ONE; Protocol Stop: 06/08/25 17:51 Last Admin: 06/08/25 18:00 Dose: 4 mg Documented By: [facility] See above if any. Consultations Consultation(s) initiated? (list below): No Diagnosis Fever Differential Diagnosis: cellulitis, fever of unknown origin, gastroenteritis, community acquired pneumonia, pyelonephritis, viral infection, sepsis, influenza and other (Cystitis) Most likely diagnosis given after review of the tests above:: None Admission Indicated Admission indicated?: not indicated Explain why admission is indicated or not indicated:: Patient does not meet admission criteria. Admission Request Was there a request for admission?: No Disposition Plan Disposition Plan: Discharge Discharge Attestation Discharge Attestation: The patient and all family members were given an opportunity to ask questions and understood the discharge instructions. Discharge instructions specifically effects, indications for sooner follow up or return to the emergency department, and the expected course of current diagnosis. Patient condition: Stable Discharge Plan Plan Patient Disposition: HOME (Self Care) Prescriptions/Referrals Prescriptions/Med Rec: New cephalexin 500 mg capsule 1,000 mg PO BID 5 Days Qty: 20 0RF No Action acetaminophen-codeine 300-15 mg tablet 1 tab PO Q12H PRN (Reason: pain) Qty: 14 0RF metronidazole 500 mg tablet 500 mg PO Q8H Qty: 14 0RF tranexamic acid 650 mg tablet 650 mg PO Q12H Qty: 7 0RF Referrals: Emelia Michel MD [Primary Care Provider] - In 1 week Problem List Clinical Impression: UTI (urinary tract infection), Pyrexia Patient/Caregiver Discharge Instructions Education Materials: Urinary Tract Infections in Women Additional Instructions: Cephalexin as prescribed. Take Tylenol 650 mg every 4 hours as needed for fever and ibuprofen 800 mg every 8 hours as needed for fever. Follow-up with your COLLEGE AND CAREER COUNSELOR physician. Return to ER as needed or if condition worsens. Print Language: Welsh Stand Alone Forms: Renetta Award Info., Patient Portal Info Letter
[2025-06-08 19:05] LABS: HCG Qualitative,Urine Negative
== END 2025-06-08 19:11 | disposition home or self-care (01) ==
PROVIDERS: Emergency Medicine; Emergency Provider Emergency Medicine; PCP Student in an Organized Health Care Education/Training Program
DX: N39.0 Urinary tract infection, site not specified (principal); R50.9 Fever, unspecified
CPT/HCPCS: 36415; 71045; 76856; 80053; 81001; 81025; 83605; 84145; 84484; 85025; 85610; 85730; 87040; 87077; 87086; 87186; 87400; 87811; 93005; 96361; 96365; 96372; 96375; 99284; J0696; J1885; J2405; J7120; A9270